=== PATIENT | female | born 1945 | race African-American/Black ===

== ENCOUNTER → 2017-07-30 | Outpatient (CLI) | payer MEDICARE, OTHER ==
--- NOTE | 2017-07-30 11:11 | RADIOLOGY REPORT (SQ) ---
EXAM DESCRIPTION: U/S RETROPERITON (RENAL/AORTA) COMPLETED DATE/TIME: 07/30/2017 11:03 am REASON FOR STUDY: R94.4 ABNORMAL RESULTS OF KIDNEY FUNCTION STUDIES R94.4 ABNORMAL RESULTS OF KIDNE Y FUNCTION STUDIES COMPARISON: None. TECHNIQUE: Dynamic and static grayscale images acquired of the kidneys and bladder and recorded on P ACS. Additional selected color Doppler and spectral images recorded. LIMITATIONS: None. FINDINGS: RIGHT KIDNEY: Normal size. Normal echogenicity. No solid or suspicious masses. No hydronep hrosis. No calcifications. LEFT KIDNEY: Normal size. Normal echogenicity. No solid or suspicious masses. No hydronephrosis. No calcifications. BLADDER: No masses. OTHER FINDINGS: No other significant finding. IMPRESSION: NORMAL RENAL AND BLADDER ULTRASOUND. TECHNICAL DOCUMENTATION: JOB ID: [id number] [employer]- All Rights Reserved Reading location - IP/workstation name: [email or web address]
== END ==
LOC: RAD 10:30
PROVIDERS: ATTEND Internal Medicine
DX: R94.4 Abnormal results of kidney function studies (principal)
CPT/HCPCS: 76770

== ENCOUNTER 2017-11-22 17:48 | Observation (INO) | payer MEDICARE, OTHER ==
[2017-11-22] MEDS ORDERED: METHYLPREDNISOLONE INJ 125 MG/2 ML SDV IV ONE (19:30)
--- NOTE | 2017-11-22 19:42 | RADIOLOGY REPORT (SQ) ---
EXAM DESCRIPTION: CHEST SINGLE VIEW COMPLETED DATE/TIME: 11/22/2017 7:30 pm REASON FOR STUDY: chest pain neck pain/ r/o cervical radiculopathy COMPARISON: 05/01/2013 EXAM PARAMETERS: NUMBER OF VIEWS: One view. TECHNIQUE: Single frontal radiographic view of the chest acquired. RADIATION DOSE: NA LIMITATIONS: None. FINDINGS: LUNGS AND PLEURA: No opacities, masses or pneumothorax. No pleural effusion. MEDIASTINUM AND HILAR STRUCTURES: No masses. Contour normal. HEART AND VASCULAR STRUCTURES: Heart normal in size. Normal vasculature. BONES: No acute findings. HARDWARE: None in the chest. OTHER: No other significant finding. IMPRESSION: NO ACUTE RADIOGRAPHIC FINDING IN THE CHEST. TECHNICAL DOCUMENTATION: JOB ID: [id number] [employer]- All Rights Reserved Reading location - IP/workstation name: [email or web address]
[2017-11-22 21:08] LABS: ABSOLUTE BASOPHILS # (AUTO) 0.1 10^3/uL (0.0-0.2); ABSOLUTE EOSINOPHILS # (AUTO) 0.5 10^3/uL (0.0-0.6); ABSOLUTE LYMPHOCYTES (AUTO) 1.6 10^3/uL (0.5-4.7); ABSOLUTE MONOCYTES (AUTO) 0.8 10^3/uL (0.1-1.4); ABSOLUTE NEUT (AUTO) 8.2 10^3/uL (1.7-8.2); BASOPHILS % (AUTO) 0.5 % (0-2); EOSINOPHILS % (AUTO) 4.3 % (0-6); HEMATOCRIT 44.4 % (36.0-47.0); HEMOGLOBIN 15.1 g/dL (12.0-15.5); MEAN CORPUSCULAR HEMOGLOBIN 29.6 pg (27.0-33.4); MEAN CORPUSCULAR VOLUME 87 fl (80-97); MONOCYTES % (AUTO) 7.2 % (3-13); PLATELET COUNT 260 10^3/uL (150-450); RED BLOOD COUNT 5.11 10^6/uL (3.72-5.28); RED CELL DISTRIBUTION WIDTH 14.1 % (11.5-14.0); TOTAL CELLS COUNTED % (AUTO) 100 %; WHITE BLOOD COUNT 11.1 10^3/uL (4.0-10.5)
[2017-11-22 21:19] LABS: ALANINE AMINOTRANSFERASE 25 U/L (9-52); ALBUMIN 4.4 g/dL (3.5-5.0); ALKALINE PHOSPHATASE 89 U/L (38-126); ANION GAP 13 (5-19); ASPARTATE AMINO TRANSFERASE 22 U/L (14-36); BILIRUBIN,DIRECT 0.5 mg/dL (0.0-0.4); BILIRUBIN,TOTAL 1.1 mg/dL (0.2-1.3); BLOOD UREA NITROGEN 21 mg/dL (7-20); CALCIUM 10.4 mg/dL (8.4-10.2); CARBON DIOXIDE 25 mmol/L (22-30); CHLORIDE 105 mmol/L (98-107); CREATINE KINASE 138 U/L (30-135); GLUCOSE 100 mg/dL (75-110); POTASSIUM 4.6 mmol/L (3.6-5.0); SODIUM 142.7 mmol/L (137-145); TOTAL PROTEIN 7.9 g/dL (6.3-8.2)
[2017-11-22 21:30] LABS: CREATINE KINASE MB 0.72 ng/mL (<4.55)
[2017-11-22 21:36] LABS: TROPONIN I < 0.012 ng/mL
[2017-11-22] MEDS ORDERED: DEXTROSE 50%-WATER 25 GM/50 ML DISP.SYRIN IV PRN ×2 (22:13)
[2017-11-22] MEDS ORDERED: DEXTROSE 40% GEL 15 GM TUBE PO PRN ×2 (22:13)
[2017-11-22] MEDS ORDERED: GLUCAGON,HUMAN RECOMB 1 MG INJ IM PRN (22:13)
[2017-11-22] MEDS ORDERED: NORMAL SALINE 1000 ML 1,000 ML IV PRN (22:14)
--- NOTE | 2017-11-22 22:33 | PDOC H&P ---
History of Present Illness Admission Date/PCP: 11/22/17 17:48 ZACK WESTON MD History of Present Illness: NORRIS WALLS is a 72 year old female,She was admitted for the evaluation of chest pain and neck pain, I saw her in the office last Wednesday when she came to the office for evaluation of neck pain with associated torticollis, she was given prescription for pain control. She called the office earlier this morning to complain of neck pain with chest involvement, I was concerned because of chest involvement and the fact that she has risk factors for ischemic heart disease, history of diabetes mellitus, hypertension. She was advised to come into the office for further evaluation, in the office a 12-lead EKG was done, it was sinus rhythm there was no acute ST or T segment deviation to suggest acute ischemia or acute IL, there was tenderness in the neck, the pain also radiates to the upper arm on the chest, cervical radiculopathy due to cervical disc disease was suspected she was admitted directly from the office to the hospital for further evaluation.MRI of the cervical spine was done it demonstrated focal central protrusion of the disc at C4-C5 which indents the anterior aspect of the spinal cord resulting in moderate narrowing of the canal at C5-C6 there is a focal central protrusion with indentation of the anterior aspect of the cord and moderate to severe central canal stenosis C6-C7 generalized bulging of the disc with flattening of the anterior aspect of the thecal sac Past Medical History Endocrine Medical History: Reports: Diabetes Mellitus Type 2 Musculoskeltal Medical History: Reports: Gout Past Surgical History Past Surgical History: Reports: Cholecystectomy, Hysterectomy, Orthopedic Surgery Social History Smoking Status: Former Smoker Family History Family History: Reviewed & Not Pertinent Parental Family History Reviewed: Yes Children Family History Reviewed: Yes Sibling(s) Family History Reviewed.: Yes Medication/Allergy Home Medications: Aspirin [Ecotrin 81 mg EC Tablet] 81 mg PO DAILY 06/03/11 Aspirin [Aspirin EC] 81 mg PO DAILY 11/23/17 Empagliflozin [Jardiance] 25 mg PO DAILY 11/23/17 Gabapentin [Neurontin 300 mg Capsule] 300 mg PO Q8 11/23/17 Methocarbamol [Robaxin 500 mg Tablet] 750 mg PO Q4H 11/23/17 Pravastatin Sodium [Pravachol] 40 mg PO QHS 11/23/17 Sitagliptin Phos/Metformin HCl [Janumet Xr 100-1,000 mg Tablet] 1 tab PO DAILY 11/23/17 Zaleplon [Sonata] 10 mg PO HSP PRN 11/23/17 Allergies/Adverse Reactions: oxycodone HCl [From Percocet] Allergy (Verified 11/10/14 17:55) Generalized Itching Review of Systems Constitutional: ABSENT: chills, fever(s), headache(s), weight gain, weight loss Eyes: ABSENT: visual disturbances Ears: ABSENT: hearing changes Cardiovascular: PRESENT: chest pain. ABSENT: dyspnea on exertion, edema, orthropnea, palpitations Respiratory: ABSENT: cough, hemoptysis Gastrointestinal: ABSENT: abdominal pain, constipation, diarrhea, hematemesis, hematochezia, nausea, vomiting Genitourinary: ABSENT: dysuria, hematuria Musculoskeletal: ABSENT: joint swelling Integumentary: ABSENT: rash, wounds Neurological: PRESENT: other - Neck pain with cervical radiculopathy. ABSENT: abnormal gait, abnormal speech, confusion, dizziness, focal weakness, syncope Psychiatric: ABSENT: anxiety, depression, homidical ideation, suicidal ideation Endocrine: ABSENT: cold intolerance, heat intolerance, menstrual abnormalities, polydipsia, polyuria Hematologic/Lymphatic: ABSENT: easy bleeding, easy bruising, lymphadenopathy Physical Exam Vital Signs: Intake & Output 11/21/17 11/22/17 11/23/17 06:59 06:59 06:59 Weight 91.7 kg General appearance: PRESENT: no acute distress, well-developed, well-nourished Head exam: PRESENT: atraumatic, normocephalic Eye exam: PRESENT: conjunctiva pink, EOMI, PERRLA Ear exam: PRESENT: normal external ear exam Mouth exam: PRESENT: moist, tongue midline Neck exam: PRESENT: tenderness Respiratory exam: PRESENT: clear to auscultation georges Cardiovascular exam: PRESENT: RRR, +S1, +S2 Pulses: PRESENT: normal dorsalis pedis pul, +2 pedal pulses bilateral Vascular exam: PRESENT: normal capillary refill GI/Abdominal exam: PRESENT: normal bowel sounds, soft Rectal exam: PRESENT: deferred Neurological exam: PRESENT: alert, awake, oriented to person, oriented to place , oriented to time, oriented to situation, CN II-XII grossly intact Psychiatric exam: PRESENT: appropriate affect, normal mood Skin exam: PRESENT: dry, intact, warm Results Laboratory Results: 11/22/17 20:50 11/22/17 20:50 11/22/17 11/22/17 20:50 20:50 WBC 11.1 H RBC 5.11 Hgb 15.1 Hct 44.4 MCV 87 MCH 29.6 MCHC 34.0 RDW 14.1 H Plt Count 260 Seg Neutrophils % 74.0 Lymphocytes % 14.0 Monocytes % 7.2 Eosinophils % 4.3 Basophils % 0.5 Absolute Neutrophils 8.2 Absolute Lymphocytes 1.6 Absolute Monocytes 0.8 Absolute Eosinophils 0.5 Absolute Basophils 0.1 Sodium 142.7 Potassium 4.6 Chloride 105 Carbon Dioxide 25 Anion Gap 13 BUN 21 H Creatinine 1.23 Est GFR ( Amer) 52 L Est GFR (Non-Af Amer) 43 L Glucose 100 Calcium 10.4 H Total Bilirubin 1.1 AST 22 ALT 25 Alkaline Phosphatase 89 Total Protein 7.9 Albumin 4.4 11/22/17 11/22/17 20:50 20:50 Creatine Kinase 138 H CK-MB (CK-2) 0.72 Troponin I < 0.012 Impressions: Chest X-Ray 11/22/17 00:00 IMPRESSION: NO ACUTE RADIOGRAPHIC FINDING IN THE CHEST. 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
--- NOTE | 2017-11-22 22:42 | EKG REPORT ---
SEVERITY:- ABNORMAL ECG - SINUS RHYTHM MULTIPLE VENTRICULAR PREMATURE COMPLEXES LEFT VENTRICULAR HYPERTROPHY : Confirmed by: Alize Reyes MD 22-Nov-2017 22:42:32
--- NOTE | 2017-11-22 23:08 | RADIOLOGY REPORT (SQ) ---
EXAM DESCRIPTION: MRI cervical spine CLINICAL HISTORY: chest pain neck pain/ r/o cervical radiculopathy COMPARISON: None Available. TECHNIQUE: Multiplanar images of the cervical spine were submitted without the administration of contrast FINDINGS: Normal cervical alignment with straightening of the normal lordosis. Marrow signal appears within normal limits without evidence of geographic marrow lesion or marrow edema. No acute fracture. Signal within the cervical cord appears within normal limits. C2-3: Tiny central disc at C2-C3 resulting in mild narrowing of the canal.. C3-4: Small central protrusion with moderate narrowing of the central canal measuring 8 mm. C4-5: Focal central protrusion which indents the anterior aspect of the cord and results in moderate narrowing of the canal. AP dimension of the canal 8 mm. C5-6: Focal central protrusion with some indentation of the anterior aspect of the cord and moderate to severe central canal stenosis. C6-7: Mild generalized bulging of the disc with flattening of the anterior aspect of the thecal sac. Left neural foraminal narrowing. C7-T1: Left neural foraminal stenosis. IMPRESSION: Small central disc protrusions at multiple levels Moderate central canal stenosis at C3-4 C4-5. Moderate to severe central canal stenosis at C5-6 with indentation of the anterior cord Additional changes as above
[2017-11-22] MEDS: METHYLPREDNISOLONE INJ 40 MG/1 ML SDV IV SCH (23:25)
[2017-11-22] MEDS: INSULIN LISPRO 100 UNIT/ML 3 ML VIAL SUBCUT PRN (23:43)
[2017-11-23] MEDS ORDERED: PREGABALIN 75 MG CAPSULE PO ONE (03:45)
[2017-11-23 05:31] LABS: TROPONIN I < 0.012 ng/mL
[2017-11-23] MEDS: METHYLPREDNISOLONE INJ 40 MG/1 ML SDV IV SCH ×3 (06:59→23:02)
[2017-11-23] MEDS ORDERED: (PENDING PHARMACY ID) (Zaleplon [Sonata] 10 MG) PO PRN (10:19)
[2017-11-23] MEDS: PREGABALIN 75 MG CAPSULE PO SCH ×2 (11:17→19:00)
[2017-11-23] MEDS: ACETAMINOPHEN 325 MG TABLET PO PRN ×2 (11:18→23:08)
[2017-11-23] MEDS: GABAPENTIN 300 MG CAPSULE PO SCH ×2 (13:42→23:01)
[2017-11-23] MEDS: METHOCARBAMOL 500 MG TABLET PO SCH ×3 (13:43→23:03)
[2017-11-23 15:08] LABS: CREATINE KINASE MB 0.74 ng/mL (<4.55)
[2017-11-23 15:09] LABS: TROPONIN I < 0.012 ng/mL
[2017-11-23] MEDS: SITAGLIPTIN PHOSPHATE 50 MG TABLET PO SCH (18:59)
[2017-11-23] MEDS: METFORMIN HCL 500 MG TABLET PO SCH (18:59)
[2017-11-23] MEDS: INSULIN LISPRO 100 UNIT/ML 3 ML VIAL SUBCUT PRN ×2 (19:00→23:23)
--- NOTE | 2017-11-23 20:52 | PDOC DISCHARGE SUMMARY ---
General - Admit/Disc Date/PCP Admission Date/Primary Care Provider: 11/22/17 17:48 ZACK WESTON MD Discharge Date: 11/23/17 - Discharge Diagnosis (1) Central stenosis of spinal canal Is this a current diagnosis for this admission?: Yes (2) Cervical radiculopathy Is this a current diagnosis for this admission?: Yes (3) Type 2 diabetes mellitus Is this a current diagnosis for this admission?: Yes - Additional Information Resuscitation Status: Full Code Prescriptions: Tapentadol HCl [Nucynta] 50 mg PO Q8H #60 tablet Home Medications: Aspirin [Ecotrin 81 mg EC Tablet] 81 mg PO DAILY 06/03/11 Aspirin [Aspirin EC] 81 mg PO DAILY 11/23/17 Empagliflozin [Jardiance] 25 mg PO DAILY 11/23/17 Gabapentin [Neurontin 300 mg Capsule] 300 mg PO Q8 11/23/17 Methocarbamol [Robaxin 500 mg Tablet] 750 mg PO Q4H 11/23/17 Pravastatin Sodium [Pravachol] 40 mg PO QHS 11/23/17 Sitagliptin Phos/Metformin HCl [Janumet Xr 100-1,000 mg Tablet] 1 tab PO DAILY 11/23/17 Tapentadol HCl [Nucynta] 50 mg PO Q8H #60 tablet 11/23/17 Zaleplon [Sonata] 10 mg PO HSP PRN 11/23/17 History of Present Illness History of Present Illness: NORRIS WALLS is a 72 year old female,She was admitted for the evaluation of chest pain and neck pain, I saw her in the office last Wednesday when she came to the office for evaluation of neck pain with associated torticollis, she was given prescription for pain control. She called the office earlier this morning to complain of neck pain with chest involvement, I was concerned because of chest involvement and the fact that she has risk factors for ischemic heart disease, history of diabetes mellitus, hypertension. She was advised to come into the office for further evaluation, in the office a 12-lead EKG was done, it was sinus rhythm there was no acute ST or T segment deviation to suggest acute ischemia or acute DC, there was tenderness in the neck, the pain also radiates to the upper arm on the chest, cervical radiculopathy due to cervical disc disease was suspected she was admitted directly from the office to the hospital for further evaluation.MRI of the cervical spine was done it demonstrated focal central protrusion of the disc at C4-C5 which indents the anterior aspect of the spinal cord resulting in moderate narrowing of the canal at C5-C6 there is a focal central protrusion with indentation of the anterior aspect of the cord and moderate to severe central canal stenosis C6-C7 generalized bulging of the disc with flattening of the anterior aspect of the thecal sac Hospital Course Hospital Course: Patient was admitted for the management of cervical radiculopathy due to severe spinal stenosis, she was treated with intravenous Solu-Medrol and Lyrica, cervical collar was placed in the neck. She was brought in for observation outpatient follow-up with distribution specialist will be arranged by my office Physical Exam Vital Signs: Temp Pulse Resp BP Pulse Ox 98.2 F 80 18 143/57 H 92 11/23/17 15:11 11/23/17 19:26 11/23/17 15:11 11/23/17 15:11 11/23/17 15:11 Intake & Output 11/22/17 11/23/17 11/24/17 06:59 06:59 06:59 Intake Total 700 681 Balance 700 681 Weight 95.5 kg General appearance: PRESENT: no acute distress Eye exam: PRESENT: PERRLA Respiratory exam: PRESENT: clear to auscultation georges Cardiovascular exam: PRESENT: +S1, +S2 GI/Abdominal exam: PRESENT: soft Neurological exam: PRESENT: alert, CN II-XII grossly intact Results Laboratory Results: 11/22/17 20:50 11/22/17 20:50 11/22/17 11/22/17 11/22/17 20:50 20:50 20:50 WBC 11.1 H RBC 5.11 Hgb 15.1 Hct 44.4 MCV 87 MCH 29.6 MCHC 34.0 RDW 14.1 H Plt Count 260 Seg Neutrophils % 74.0 Lymphocytes % 14.0 Monocytes % 7.2 Eosinophils % 4.3 Basophils % 0.5 Absolute Neutrophils 8.2 Absolute Lymphocytes 1.6 Absolute Monocytes 0.8 Absolute Eosinophils 0.5 Absolute Basophils 0.1 Sodium 142.7 Potassium 4.6 Chloride 105 Carbon Dioxide 25 Anion Gap 13 BUN 21 H Creatinine 1.23 Est GFR ( Amer) 52 L Est GFR (Non-Af Amer) 43 L Glucose 100 Calcium 10.4 H Total Bilirubin 1.1 AST 22 ALT 25 Alkaline Phosphatase 89 Total Protein 7.9 Albumin 4.4 PTH Intact 58.3 11/22/17 11/22/17 11/23/17 20:50 20:50 04:41 Creatine Kinase 138 H 108 CK-MB (CK-2) 0.72 Troponin I < 0.012 11/23/17 11/23/17 11/23/17 04:41 12:59 12:59 Creatine Kinase 84 CK-MB (CK-2) 0.50 0.74 Troponin I < 0.012 < 0.012 Impressions: Cervical Spine MRI 11/22/17 00:00 IMPRESSION: Small central disc protrusions at multiple levels Moderate central canal stenosis at C3-4 C4-5. Moderate to severe central canal stenosis at C5-6 with indentation of the anterior cord Additional changes as above Chest X-Ray 11/22/17 00:00 IMPRESSION: NO ACUTE RADIOGRAPHIC FINDING IN THE CHEST. Qualifiers - * PATIENT BEING DISCHARGED WITH ANY OF THE FOLLOWING DIAGNOSIS: No
[2017-11-23] MEDS ORDERED: (PENDING PHARMACY ID) (Pravastatin Sodium [Pravachol] 40 MG) PO SCH (22:00)
[2017-11-23] MEDS ORDERED: ATORVASTATIN CALCIUM 10 MG TABLET PO SCH (22:00)
[2017-11-24] MEDS: METHOCARBAMOL 500 MG TABLET PO SCH ×2 (02:30→06:03)
[2017-11-24] MEDS: GABAPENTIN 300 MG CAPSULE PO SCH (06:04)
[2017-11-24] MEDS: METHYLPREDNISOLONE INJ 40 MG/1 ML SDV IV SCH (06:04)
[2017-11-24] MEDS: INSULIN LISPRO 100 UNIT/ML 3 ML VIAL SUBCUT PRN (07:40)
[2017-11-24] MEDS: ACETAMINOPHEN 325 MG TABLET PO PRN (07:40)
[2017-11-24] MEDS: SITAGLIPTIN PHOSPHATE 50 MG TABLET PO SCH (07:41)
[2017-11-24] MEDS: METFORMIN HCL 500 MG TABLET PO SCH (07:41)
[2017-11-24 09:17] VITALS: BP 133/57
[2017-11-24] MEDS ORDERED: ASPIRIN 81 MG TABLET, ENT COATED PO SCH (10:00)
[2017-11-24] MEDS ORDERED: (PENDING PHARMACY ID) (Sitagliptin Phos/Metformin Hcl [Janumet Xr 100-1,000 Mg Tablet] 1 T PO SCH (10:00)
[2017-11-24] MEDS ORDERED: (PENDING PHARMACY ID) (Empagliflozin [Jardiance] 25 MG) PO SCH (10:00)
== END 2017-11-24 10:55 | disposition home or self-care (01) ==
LOC: 5 17:48 → INTOOBSV 17:48
PROVIDERS: ADMIT Internal Medicine; ATTEND Internal Medicine
DX: M48.02 Spinal stenosis, cervical region (principal); M54.12 Radiculopathy, cervical region; E11.42 Type 2 diabetes mellitus with diabetic polyneuropathy; Z79.82 Long term (current) use of aspirin; Z79.899 Other long term (current) drug therapy; Z79.84 Long term (current) use of oral hypoglycemic drugs; Z90.49 Acquired absence of other specified parts of digestive tract; Z87.891 Personal history of nicotine dependence
CPT/HCPCS: 36415 ×2; 82553 ×2; 82962 ×3; 82550 ×2; 85025; 80076; 80048; 84484 ×2; 82565; 83970; 72156; 71045; 93005; 93010; G0378 ×3; G0379; L0120; A9576; A9270 ×13; J2920 ×2; J2930; J7030; J1815

== ENCOUNTER → 2019-03-28 | Outpatient (CLI) | payer MEDICARE, OTHER ==
--- NOTE | 2019-03-28 11:22 | WOMENS IMAGING REPORT ---
EXAM DESCRIPTION: 3D DX MAMMO BILAT; U/S BREAST UNILAT LIMITED COMPLETED DATE/TIME: 03/28/2019 9:58 am; 03/28/2019 10:33 am REASON FOR STUDY: N64.9 DISORDER OF BREAST, UNSPECIFIED; LEFT BREAST PAIN N64.9 N64.9 DISORDER OF B REAST, UNSPECIFIED COMPARISON: 2010 and subsequent. EXAM PARAMETERS: Standard craniocaudal and mediolateral oblique views of each breast recorded using digital acquisition and breast tomosynthesis. Left true lateral. Targeted left breast ultrasound. Read with the assistance of CAD: .[facility] - [employer] Version 9.2 LIMITATIONS: None. FINDINGS: RIGHT BREAST MASSES: No suspicious masses. CALCIFICATIONS: No new or suspicious calcifications. ARCHITECTURAL DISTORTION: None. ASYMMETRY: None noted. OTHER: No other significant findings. LEFT BREAST MASSES: No suspicious masses. CALCIFICATIONS: No new or suspicious calcifications. ARCHITECTURAL DISTORTION: None. ASYMMETRY: None noted. OTHER: No other significant finding. Ultrasound left breast: Scanning is performed laterally and inferiorly in the region of previous crys n (which has subsequently resolved). No mass or tissue distortion. IMPRESSION: No worrisome findings in either breast. BREAST DENSITY: b. There are scattered areas of fibroglandular density. BIRAD: ASSESSMENT: 1 Negative. RECOMMENDATION: RECOMMENDED FOLLOW UP: Clinical followup. Continued yearly screening mammography. SPECIFIC INTERVENTION/IMAGING/CONSULTATION RECOMMENDED:No additional intervention/ imaging/consultati on needed at this time. COMMUNICATION:No significant abnormalities to discuss with the patient today. COMMENT: The patient has been notified of the results by letter per MQSA requirements. Additional no tification policies are in place for contacting patient with suspicious or incomplete findings. Quality ID #[id number]: The [employer] recommends an annual screening mammogram for women aged 40 years or over. This facility utilizes a reminder system to ensure that all patients receive reminder letters, and/or direct phone calls for appointments. This includes reminders for routine scr eening mammograms, diagnostic mammograms, or other Breast Imaging Interventions when appropriate. Th is patient will be placed in the appropriate reminder system. TECHNICAL DOCUMENTATION: FINDING NUMBER: (1) ASSESSMENT: (1) JOB ID: [id number] [employer]- All Rights Reserved Reading location - IP/workstation name: [email or web address]
--- NOTE | 2019-03-28 11:22 | WOMENS IMAGING REPORT ---
EXAM DESCRIPTION: 3D DX MAMMO BILAT; U/S BREAST UNILAT LIMITED COMPLETED DATE/TIME: 03/28/2019 9:58 am; 03/28/2019 10:33 am REASON FOR STUDY: N64.9 DISORDER OF BREAST, UNSPECIFIED; LEFT BREAST PAIN N64.9 N64.9 DISORDER OF B REAST, UNSPECIFIED COMPARISON: 2010 and subsequent. EXAM PARAMETERS: Standard craniocaudal and mediolateral oblique views of each breast recorded using digital acquisition and breast tomosynthesis. Left true lateral. Targeted left breast ultrasound. Read with the assistance of CAD: .[facility] [employer] Version 9.2 LIMITATIONS: None. FINDINGS: RIGHT BREAST MASSES: No suspicious masses. CALCIFICATIONS: No new or suspicious calcifications. ARCHITECTURAL DISTORTION: None. ASYMMETRY: None noted. OTHER: No other significant findings. LEFT BREAST MASSES: No suspicious masses. CALCIFICATIONS: No new or suspicious calcifications. ARCHITECTURAL DISTORTION: None. ASYMMETRY: None noted. OTHER: No other significant finding. Ultrasound left breast: Scanning is performed laterally and inferiorly in the region of previous crys n (which has subsequently resolved). No mass or tissue distortion. IMPRESSION: No worrisome findings in either breast. BREAST DENSITY: b. There are scattered areas of fibroglandular density. BIRAD: ASSESSMENT: 1 Negative. RECOMMENDATION: RECOMMENDED FOLLOW UP: Clinical followup. Continued yearly screening mammography. SPECIFIC INTERVENTION/IMAGING/CONSULTATION RECOMMENDED:No additional intervention/ imaging/consultati on needed at this time. COMMUNICATION:No significant abnormalities to discuss with the patient today. COMMENT: The patient has been notified of the results by letter per MQSA requirements. Additional no tification policies are in place for contacting patient with suspicious or incomplete findings. Quality ID #[id number]: The [employer] recommends an annual screening mammogram for women aged 40 years or over. This facility utilizes a reminder system to ensure that all patients receive reminder letters, and/or direct phone calls for appointments. This includes reminders for routine scr eening mammograms, diagnostic mammograms, or other Breast Imaging Interventions when appropriate. Th is patient will be placed in the appropriate reminder system. TECHNICAL DOCUMENTATION: FINDING NUMBER: (1) ASSESSMENT: (1) JOB ID: [id number] [employer]- All Rights Reserved Reading location - IP/workstation name: [email or web address]
== END ==
LOC: WI 09:39
PROVIDERS: ATTEND Internal Medicine
DX: N64.4 Mastodynia (principal)
CPT/HCPCS: 76642; 77066; G0279; 77062

== ENCOUNTER → 2019-11-03 | Outpatient (CLI) | payer MEDICARE, OTHER | LOC: OD 14:34 | PROVIDERS: ATTEND Otolaryngology | DX: J30.9 Allergic rhinitis, unspecified (principal) | CPT/HCPCS: 36415; 82785; 86003 ==

== ENCOUNTER → 2019-11-10 | Outpatient (CLI) | payer MEDICARE, OTHER | LOC: RAD 13:37 | PROVIDERS: ATTEND Otolaryngology | DX: J01.90 Acute sinusitis, unspecified (principal) | CPT/HCPCS: 70486 ==